=== PATIENT | female | born 1960 | race Caucasian/White ===

== ENCOUNTER 2016-07-27 12:12 | Emergency (ER) | payer BC ==
[2016-07-27 12:17] VITALS: BP 165/89; PULSE 95; TEMP 98.3; BMI 20.3
--- NOTE | 2016-07-27 12:49 | PDOC ---
History of Present Illness - General Chief Complaint: Wound Stated Complaint: RT LEG PAIN/ BITE Time Seen by Provider: 07/27/16 12:23 History Source: Patient Exam Limitations: No Limitations - History of Present Illness Initial Comments: 07/27/16 12:44 55-year-old female presents to the emergency room with complaints of right calf redness with itching for the past 2 days. Patient states ventral sucking that her versus MRSA since she was taking care of her ill father who has history of MRSA for the past 2 weeks prior to his . Patient also denies outdoor activity or recent sick contacts with similar symptoms. Patient denies fever, chills, radiation of pain, or history of immunosuppression. 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) COPD: No CHF: No Dementia: No Diabetes: No GI Disorders: No Disorders: No HTN: No Hypercholesterolemia: No Liver Disease: No Seizures: No Thyroid Disease: No - Surgical History Cardiac Surgery: Yes (HOLE IN HEART REPAIR) - Immunization History Immunization Up to Date: No (no flu vaccine) - Psycho/Social/Smoking Cessation Hx Anxiety: No Suicidal Ideation: No Smoking Status: Yes Smoking History: Current every day smoker Number of Cigarettes Smoked Daily: 7 Information on smoking cessation initiated: Yes 'Breaking Loose' booklet given: 07/27/16 Hx Alcohol Use: Yes (SOCIAL) Drug/Substance Use Hx: No Substance Use Type: None Hx Substance Use Treatment: No Patient Lives Alone: No Review of Systems - Review of Systems Able to Perform ROS?: Yes Constitutional: No: Symptoms Reported Respiratory: No: Symptoms reported Integumentary: Yes: Erythema, Pruritus Endocrine: No: Symptoms Reported Hematologic/Lymphatic: No: Symptoms Reported *Physical Exam - Vital Signs Last Vital Signs Temp Pulse Resp BP Pulse Ox 98.3 F 95 H 20 165/89 99 07/27/16 12:13 07/27/16 12:13 07/27/16 12:13 07/27/16 12:13 07/27/16 12:13 - Physical Exam General Appearance: Yes: Nourished, Appropriately Dressed. No: Apparent Distress Integumentary: positive: Other (noted 2 x 1 cm erythematous nonedematous area to right mid calf with raised pinhead sized vesicles to center). negative: Swelling Neurologic: positive: Motor Strength 5/5 Medical Decision Making - Medical Decision Making 07/27/16 12:47 Patient Protonix erythematous rash to the back of her right leg. Patient may have developed contact dermatitis versus poison shanelle versus MRSA. Patient requesting antibiotics and will be given topical hydrocortisone along with Benadryl. *DC/Admit/Observation/Transfer Diagnosis at time of Disposition: Rash - Discharge Dispostion Disposition: HOME Condition at time of disposition: Good - Patient Instructions Printed Discharge Instructions: DI for Rash Additional Instructions: Please take antibiotics until completed. Next and please use topical hydrocortisone for itching and well loosefitting clothing or leave open to air. If you need to take something stronger you may also take Benadryl. If symptoms worsen return to the ED. Otherwise follow-up with your PCP
== END 2016-07-27 12:54 | disposition home or self-care (01) ==
LOC: JERFT 12:12
DX: R21 Rash and other nonspecific skin eruption (principal)
CPT/HCPCS: 99281-25

== ENCOUNTER 2018-02-17 18:05 | Emergency (ER) | payer BC ==
[2018-02-17 18:14] VITALS: BMI 20.3
--- NOTE | 2018-02-17 18:57 | PDOC ---
History of Present Illness - General Chief Complaint: Back Pain Stated Complaint: RT SIDE AND BACK PAIN Time Seen by Provider: 02/17/18 18:29 History Source: Patient - History of Present Illness Initial Comments: 02/17/18 19:19 57 year old female with one days history of right sided rib pain pain worse with breathing and movement. 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) COPD: No CHF: No Dementia: No Diabetes: No GI Disorders: No Disorders: No HTN: No Hypercholesterolemia: No Liver Disease: No Seizures: No Thyroid Disease: No - Surgical History Cardiac Surgery: Yes (HOLE IN HEART REPAIR) - Immunization History Immunization Up to Date: No (no flu vaccine) - Suicide/Smoking/Psychosocial Hx Smoking Status: Yes Smoking History: Current every day smoker Have you smoked in the past 12 months: Yes Number of Cigarettes Smoked Daily: 10 Information on smoking cessation initiated: No 'Breaking Loose' booklet given: 07/27/16 Hx Alcohol Use: Yes (SOCIAL) Drug/Substance Use Hx: No Substance Use Type: None Hx Substance Use Treatment: No *Physical Exam - Vital Signs Last Vital Signs Temp Pulse Resp BP Pulse Ox 97.9 F 93 H 17 168/72 98 02/17/18 18:10 02/17/18 18:10 02/17/18 18:10 02/17/18 18:10 02/17/18 18:10 - Physical Exam General Appearance: Yes: Appropriately Dressed HEENT: positive: Other (right sided rib tenderness anterior and posterior) Moderate Sedation - Procedure Monitoring Vital Signs: Procedure Monitoring Vital Signs Temperature 97.9 F 02/17/18 18:10 Pulse Rate 93 H 02/17/18 18:10 Respiratory Rate 17 02/17/18 18:10 Blood Pressure 168/72 02/17/18 18:10 O2 Sat by Pulse Oximetry (%) 98 02/17/18 18:10 ED Treatment Course - LABORATORY CBC & Chemistry Diagram: 02/17/18 19:00 02/17/18 19:00 Medical Decision Making - Medical Decision Making 02/17/18 20:[address] Coronado . patient needs blood work and Chest xray pending. patient transferred to the main ER *DC/Admit/Observation/Transfer Diagnosis at time of Disposition: Right-sided chest wall pain - Discharge Dispostion Disposition: HOME - Referrals Referrals: Noah Castañeda MD [Primary Care Provider] - Call tomorrow - Patient Instructions - Post Discharge Activity
--- NOTE | 2018-02-17 19:03 | PDOC ---
*Physical Exam - Vital Signs Last Vital Signs Temp Pulse Resp BP Pulse Ox 97.9 F 93 H 17 168/72 98 02/17/18 18:10 02/17/18 18:10 02/17/18 18:10 02/17/18 18:10 02/17/18 18:10 ED Treatment Course - LABORATORY CBC & Chemistry Diagram: 02/17/18 19:00 02/17/18 19:00 Medical Decision Making - Medical Decision Making 02/17/18 19:02 Pt seen by Midlevel Provider under my direct supervision Briefly, she is a 57 yo F h/o ?VSD repair She presents to the ER with a complaint of right chest pain symptoms have been present for the past day, she awoke with this chest pain Has been progressively been worsening She was unable to sleep last night She is unable to take a deep breath Pain with movement No fevers, chills, cough no trauma to the chest wall No prior episodes like this Pt was initially seen in fast tract She has already taken Tylenol with no relief I agree with plan as outlined by Midlevel Provider Twelve-lead EKG was performed and reviewed by me. There is normal sinus rhythm with a normal rate of 70 bpm. The axis is normal. The intervals are normal. There are no ST or T wave abnormalities. Impression: Normal twelve-lead EKG 02/17/18 19:38 Laboratory Tests 02/17/18 02/17/18 19:00 19:00 WBC 7.5 Hgb 13.6 Hct 39.2 Plt Count 322 INR 0.95 02/17/18 19:52 Laboratory Tests 02/17/18 19:00 Sodium 142 Potassium 4.0 Chloride 109 H BUN 21 H Creatinine 0.7 Random Glucose 89 Alkaline Phosphatase 128 H Troponin I < 0.02 02/17/18 20:01 02/17/18 20:31 Laboratory Tests 02/17/18 19:00 D-Dimer 470 02/17/18 20:36 Pt still has pain After toradol and Robaxin Will do CTA Unclear why this patient has no much pain 02/17/18 22:24 CTA negative Will plan to discharge to home clinical Impression: pleurisy, initial presentation *DC/Admit/Observation/Transfer Diagnosis at time of Disposition: Right-sided chest wall pain, Pleurisy without effusion - Discharge Dispostion Disposition: HOME Condition at time of disposition: Stable Decision to Admit order: No - Prescriptions Prescriptions: Lidocaine 5% Patch [Lidoderm Patch -] 1 patch TP DAILY PRN #30 patch PRN Reason: Pain Methocarbamol [Robaxin -] 500 mg PO TID PRN #30 tablet PRN Reason: Lower Back Pain Naproxen [Naprosyn -] 500 mg PO BID PRN #14 tablet PRN Reason: Pain traMADol HCL [Ultram] 50 mg PO Q8H PRN #15 tablet MDD 3 PRN Reason: Severe Pain - Referrals Referrals: Noah Castañeda MD [Primary Care Provider] - Call tomorrow - Patient Instructions Printed Discharge Instructions: DI for Pleurisy Additional Instructions: Thank you for coming in to the ER today Please review your CT and lab findings There is no evidence of a clot in your lungs accounting for your pain Please try pain medications which were prescribed for your pain Please follow up with your primary care physician within 2 days You can feel free to return to the ER if you have new symptoms, any other concerns or complaints - Post Discharge Activity Forms/Work/School Notes: Back to Work
[2018-02-17 19:17] LABS: BASO % 0.9 % (0-2.0); EOS % 1.8 % (0-4.5); HEMATOCRIT 39.2 % (32.4-45.2); HEMOGLOBIN 13.6 GM/dL (10.7-15.3); LYMPH % 40.4 % (8-40); MCH 31.3 pg (25.7-33.7); MCHC 34.6 g/dl (32.0-36.0); MEAN CELL VOLUME 90.4 fl (80-96); MEAN PLT VOLUME 8.4 fl (7.5-11.1); MONO % 7.1 % (3.8-10.2); NEUT % 49.8 % (42.8-82.8); PLATELET COUNT 322 K/MM3 (134-434); RBC 4.34 M/mm3 (3.60-5.2); RDW 13.2 % (11.6-15.6); WHITE BLOOD COUNT 7.5 K/mm3 (4.0-10.0)
[2018-02-17 19:30] LABS: INR 0.95 (0.83-1.09); PROTHROMBIN TIME (PATIENT) 11.2 SEC (9.7-13.0)
[2018-02-17 19:41] LABS: ALBUMIN 3.9 g/dl (3.4-5.0); ALK PHOS 128 U/L (45-117); ANION GAP 7 MMOL/L (8-16); BILIRUBIN,TOTAL 0.3 mg/dL (0.2-1); BLOOD UREA NITROGEN 21 mg/dL (7-18); CHLORIDE 109 mmol/L (98-107); CO2 27 mmol/L (21-32); CREATININE 0.7 mg/dL (0.55-1.3); GLUCOSE,RANDOM 89 mg/dL (74-106); MAGNESIUM 2.4 mg/dL (1.8-2.4); SGOT/AST 9 U/L (15-37); SGPT/ALT 17 U/L (13-61); SODIUM 142 mmol/L (136-145); TOT PROT 7.5 g/dl (6.4-8.2)
[2018-02-17] MEDS ORDERED: METHOCARBAMOL 500 MG TABLET PO ONE (19:59)
[2018-02-17] MEDS ORDERED: KETOROLAC TROMETHAMINE 30 MG/1 ML VIAL IVPUSH ONE (19:59)
[2018-02-17] MEDS ORDERED: METHOCARBAMOL 500 MG TABLET ONE (20:08)
[2018-02-17] MEDS ORDERED: KETOROLAC TROMETHAMINE 30 MG/1 ML VIAL ONE (20:09)
[2018-02-17] MEDS ORDERED: ACETAMINOPHEN 1000 MG/100 ML VIAL (NON FORMULARY) IVPB ONE (22:28)
[2018-02-17] MEDS ORDERED: ACETAMINOPHEN INJECTION 100 ML IVPB ONE (22:35)
[2018-02-17 23:01] VITALS: BP 143/73; PULSE 65; TEMP 98.2
--- NOTE | 2018-02-18 12:13 | EKG ---
Test Reason : Blood Pressure : / mmHG Vent. Rate : 070 BPM Atrial Rate : 070 BPM P-R Int : 120 ms QRS Dur : 106 ms QT Int : 442 ms P-R-T Axes : 068 086 075 degrees QTc Int : 477 ms NORMAL SINUS RHYTHM INCOMPLETE LEFT BUNDLE BRANCH BLOCK MINIMAL VOLTAGE CRITERIA FOR LVH, MAY BE NORMAL VARIANT BORDERLINE ECG WHEN COMPARED WITH ECG OF 01-MAR-2014 20:29, NO SIGNIFICANT CHANGE WAS FOUND Confirmed by CORAL MCGUIRE MD ([id number]) on 02/18/2018 12:12:35 PM Referred By: SALLY Confirmed By:CORAL MCGUIRE MD
== END 2018-02-17 23:01 | disposition home or self-care (01) ==
LOC: JER 18:05 → JERFT 18:05 → JER 23:01
PROC: 3E033NZ Introduction of Analgesics, Hypnotics, Sedatives into Peripheral Vein, Percutaneous Approach (ICD-10-PCS; principal; 2018-02-17)
PROC: 3E0333Z Introduction of Anti-inflammatory into Peripheral Vein, Percutaneous Approach (ICD-10-PCS; 2018-02-17)
DX: R07.81 Pleurodynia (principal); F17.210 Nicotine dependence, cigarettes, uncomplicated; Z86.73 Personal history of transient ischemic attack (TIA), and cerebral infarction without residual deficits
CPT/HCPCS: 36415; 71046-TC-FY; 71101-TC-RT-FY; 71275-TC; 80053; 83735; 84484; 85025; 85379; 85610; 93005; 93010; 99284-25; J0131

== ENCOUNTER 2019-04-27 19:06 | Emergency (ER) | payer BC ==
[2019-04-27 19:13] VITALS: TEMP 97.5; BMI 23.5
[2019-04-27] MEDS ORDERED: ONDANSETRON *ODT* 4 MG TABLET SL ONE (19:58)
[2019-04-27] MEDS ORDERED: FAMOTIDINE 20 MG/50 ML IVPB 20 MG/50 ML MG IVPB ONE ×2 (19:58→20:09)
[2019-04-27] MEDS ORDERED: MAG HYDROX/AL HYDROX/SIMETH -MYLANTA- ORAL SUSPENSION PO ONE (19:58)
--- NOTE | 2019-04-27 19:59 | PDOC ---
History of Present Illness <Lizz Pham - Last Filed: 04/27/19 22:24> - General History Source: Patient - History of Present Illness Initial Comments: 04/27/19 21:41 Ms. Mane is a 58 y/o woman with hx heart surgery (?VSD repair) p/w one day of central chest tightness. She reports noticing the pain last night shortly after eating dinner (pizza). She reports eating tums at that time without relief. She reports that the pain progressed over night, until reaching 8/10 pain today, and has been constant. No worsening of pain with exertion, pain with radiation to R arm. No sob, weakness, confusion, vision changes, nausea, vomiting, abdominal pain. 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) COPD: No CHF: No Dementia: No Diabetes: No GI Disorders: No Disorders: No HTN: No Hypercholesterolemia: No Liver Disease: No Seizures: No Thyroid Disease: No - Surgical History Cardiac Surgery: Yes (HOLE IN HEART REPAIR) - Immunization History Immunization Up to Date: No (no flu vaccine) - Psycho Social/Smoking Cessation Hx Smoking Status: Yes Smoking History: Former smoker Have you smoked in the past 12 months: No Number of Cigarettes Smoked Daily: 10 Information on smoking cessation initiated: No 'Breaking Loose' booklet given: 07/27/16 Hx Alcohol Use: Yes (SOCIAL) Drug/Substance Use Hx: No Substance Use Type: None Hx Substance Use Treatment: No <Justin Lezama - Last Filed: 04/28/19 04:36> - Past Medical History Allergies/Adverse Reactions: Allergies Allergy/AdvReac Type Severity Reaction Status Date / Time No Known Allergies Allergy Verified 04/27/19 19:12 Review of Systems - Review of Systems Able to Perform ROS?: Yes Comments:: 04/28/19 04:32 ROS: GENERAL/CONSTITUTIONAL: No fever or chills. No weakness. HEAD, EYES, EARS, NOSE AND THROAT: No change in vision. No ear pain or discharge. No sore throat. CARDIOVASCULAR: Chest pain. No shortness of breath RESPIRATORY: No cough, wheezing, or hemoptysis. GASTROINTESTINAL: No nausea, vomiting, diarrhea or constipation. GENITOURINARY: No dysuria, frequency, or change in urination. MUSCULOSKELETAL: No joint or muscle swelling or pain. No neck or back pain. SKIN: No rash NEUROLOGIC: No headache, vertigo, loss of consciousness, or change in strength/ sensation. ENDOCRINE: No increased thirst. No abnormal weight change HEMATOLOGIC/LYMPHATIC: No anemia, easy bleeding, or history of blood clots. ALLERGIC/IMMUNOLOGIC: No hives or skin allergy. <Justin Lezama - Last Filed: 04/28/19 04:36> *Physical Exam - Vital Signs Last Vital Signs Temp Pulse Resp BP Pulse Ox 97.5 F L 88 18 159/63 97 04/27/19 19:10 04/27/19 19:10 04/27/19 19:10 04/27/19 19:10 04/27/19 20:32 <Lizz Pham - Last Filed: 04/27/19 22:24> - Vital Signs Last Vital Signs Temp Pulse Resp BP Pulse Ox 97.5 F L 88 18 159/63 99 04/27/19 19:10 04/27/19 19:10 04/27/19 19:10 04/27/19 19:10 04/27/19 19:10 - Physical Exam 04/28/19 04:33 PE: GENERAL: Awake, alert, and fully oriented, in no acute distress HEAD: No signs of trauma, normocephalic, atraumatic EYES: PERRLA, EOMI, sclera anicteric, conjunctiva clear ENT: Auricles normal inspection, hearing grossly normal, nares patent, oropharynx clear without exudates. Moist mucosa NECK: Normal ROM, supple, no lymphadenopathy, JVD, or masses LUNGS: No distress, speaks full sentences, clear to auscultation bilaterally HEART: Regular rate and rhythm, normal S1 and S2, no murmurs, rubs or gallops, peripheral pulses normal and equal bilaterally. ABDOMEN: Soft, nontender, normoactive bowel sounds. No guarding, no rebound. No masses EXTREMITIES : Normal inspection, Normal range of motion, no edema. No clubbing or cyanosis NEUROLOGICAL: Cranial nerves II through XII grossly intact. Normal speech, normal gait, no focal sensorimotor deficits SKIN: Warm, Dry, normal turgor, no rashes or lesions noted <Justin Lezama - Last Filed: 04/28/19 04:36> Heart Score/ECG Review - History History: Slightly suspicious - Electrocardiogram EKG: Normal - Age Age: 45-65 - Risk Factors Based on the list above the patient has:: 1-2 risk factors - Troponin Troponin: </= normal limit - Score Heart Score - Total: 2 <Justin Lezama - Last Filed: 04/28/19 04:36> ED Treatment Course - LABORATORY CBC & Chemistry Diagram: 04/27/19 20:26 04/27/19 20:26 - ADDITIONAL ORDERS Additional order review: Laboratory Results 04/27/19 04/27/19 04/27/19 20:26 20:26 20:26 PT with INR 12.00 INR 1.02 PTT (Actin FS) 33.2 Sodium 143 Potassium 3.5 Chloride 108 H Carbon Dioxide 29 Anion Gap 7 L BUN 19.1 H Creatinine 0.7 Est GFR (CKD-EPI)AfAm 112.26 Est GFR (CKD-EPI)NonAf 96.86 Random Glucose 86 Calcium 9.2 Total Bilirubin 0.3 AST 17 ALT 28 Alkaline Phosphatase 140 H Creatine Kinase 78 Troponin I < 0.02 Total Protein 7.1 Albumin 3.5 04/27/19 20:26 RBC 4.31 MCV 88.8 MCHC 33.8 RDW 13.8 MPV 8.3 Neutrophils % 63.3 D Lymphocytes % 28.1 D Monocytes % 7.1 Eosinophils % 0.7 Basophils % 0.8 - Medications Given in the ED: ED Medications Discontinued Medications Generic Name Dose Route Start Last Admin Trade Name Freq PRN Reason Stop Dose Admin Al Hydroxide/Mg Hydroxide 30 ml 04/27/19 19:58 04/27/19 20:30 Mylanta Suspension - PO 04/27/19 19:59 1 cup ONCE ONE Administration Famotidine/Sodium Chloride 20 mg in 50 mls @ 100 mls/hr 04/27/19 19:58 20:30 Pepcid 20 Mg Premixed Ivpb - IVPB 04/27/19 20:27 100 mls/hr ONCE ONE Administration Ketorolac Tromethamine 30 mg 04/27/19 21:08 04/27/19 21:34 Toradol Injection - IVPUSH 04/27/19 21:09 30 mg ONCE ONE Administration Ondansetron HCl 4 mg 04/27/19 19:58 04/27/19 20:30 Zofran Odt - SL 04/27/19 19:59 4 mg ONCE ONE Administration <Claire Phamreen - Last Filed: 04/27/19 22:24> - LABORATORY CBC & Chemistry Diagram: 04/27/19 20:26 04/27/19 20:26 <LiseJustin - Last Filed: 04/28/19 04:36> Medical Decision Making - Medical Decision Making 04/27/19 21:44 58F w/hx remote cardiac surgery p/w acute onset chest tightness s/p eating. Ddx ACS, GERD, MSK pain. PE unlikely w/o sob, tachypnea, tachycardia. Plan: CBC CMP Cardiac profile x1 (onset of pain last night) EKG CXR Maalox Reglan Acetaminophen for pain Dispo: Pending labs, likely discharge --- CBC - wnl CMP - wnl Troponin - negative CXR - no acute process EKG - NSR, no ischemic changes --- On reassessment, pain significantly improved. Plan for discharge with close PCP follow up <Justin Lezama - Last Filed: 04/28/19 04:36> Discharge <VeroLizz - Last Filed: 04/27/19 22:24> - Discharge Information Problems reviewed: Yes - Admission No <Justin Lezama - Last Filed: 04/28/19 04:36> - Discharge Information Clinical Impression/Diagnosis: Chest discomfort Condition: Stable Disposition: HOME - Follow up/Referral Referrals: Noah Castañeda MD [Primary Care Provider] - - Patient Discharge Instructions Patient Printed Discharge Instructions: Eating a Diet Rich in Fruits and Vegetables, DI for Atypical Chest Pain, DI for Chest Pain Additional Instructions: You were seen in the ER for chest pain. Your blood work was normal, and your pain improved. Please be sure to follow up with your primary care provider as soon as possible, in the next 7 days. Please return to the ER if you develop weakness, worsening chest pain, trouble breathing. - Post Discharge Activity Work/Back to School Note: Back to Work
--- NOTE | 2019-04-27 20:02 | PDOC ---
*Physical Exam - Vital Signs Last Vital Signs Temp Pulse Resp BP Pulse Ox 97.5 F L 88 18 159/63 99 04/27/19 19:10 04/27/19 19:10 04/27/19 19:10 04/27/19 19:10 04/27/19 19:10 ED Treatment Course - LABORATORY CBC & Chemistry Diagram: 04/27/19 20:26 04/27/19 20:26 Medical Decision Making - Medical Decision Making 04/27/19 20:01 58 y/o female with a PMHx of anatomic cardiac abnormality (hole in heart s/p repair) presents with acute onset of chest tightness starting yesterday around 2 p.m. Patient states she ate a pizza for lunch around 12:30 or 1 p.m. yesterday and suddenly felt "not right" had episodes of diarrhea and then approximately one hour later had acute onset of chest tightness. Tightness is constant and radiates down her right arm. No associated shortness of breath, palpitations, lightheadedness, nausea. No significant family cardiac history, no previous stress testing. States she took 4 baby aspirin earlier today without any relief of the pain. Will r/o ACS, also consider GERD, esophageal spasm, costochondritis, MSK. Discharge - Discharge Information Problems reviewed: Yes Clinical Impression/Diagnosis: Chest discomfort Condition: Stable Disposition: HOME - Follow up/Referral Referrals: Noah Castañeda MD [Primary Care Provider] - - Patient Discharge Instructions Patient Printed Discharge Instructions: Eating a Diet Rich in Fruits and Vegetables, DI for Atypical Chest Pain, DI for Chest Pain Additional Instructions: You were seen in the ER for chest pain. Your blood work was normal, and your pain improved. Please be sure to follow up with your primary care provider as soon as possible, in the next 7 days. Please return to the ER if you develop weakness, worsening chest pain, trouble breathing. - Post Discharge Activity Work/Back to School Note: Back to Work
[2019-04-27] MEDS ORDERED: ONDANSETRON *ODT* 4 MG TABLET ONE (20:09)
[2019-04-27] MEDS ORDERED: MAG HYDROX/AL HYDROX/SIMETH 30 ML UNIT-DOSE CUP ONE (20:09)
[2019-04-27 20:52] LABS: BASO % 0.8 % (0-2.0); EOS % 0.7 % (0-4.5); HEMATOCRIT 38.2 % (32.4-45.2); HEMOGLOBIN 12.9 GM/dL (10.7-15.3); INR 1.02 (0.83-1.09); LYMPH % 28.1 % (8-40); MCHC 33.8 g/dl (32.0-36.0); MEAN CELL VOLUME 88.8 fl (80-96); MEAN PLT VOLUME 8.3 fl (7.5-11.1); MONO % 7.1 % (3.8-10.2); NEUT % 63.3 % (42.8-82.8); PLATELET COUNT 363 K/MM3 (134-434); RBC 4.31 M/mm3 (3.60-5.2); RDW 13.8 % (11.6-15.6); WHITE BLOOD COUNT 9.6 K/mm3 (4.0-10.0)
[2019-04-27 20:54] LABS: ACTIVATED PTT 33.2 SECONDS (25.2-36.5)
[2019-04-27] MEDS ORDERED: KETOROLAC TROMETHAMINE 30 MG/1 ML VIAL IVPUSH ONE (21:08)
--- NOTE | 2019-04-27 21:21 | PDOC ---
Attending Attestation - Resident Resident Name: Justin Lezama - ED Attending Attestation I have performed the following: I have examined & evaluated the patient, The case was reviewed & discussed with the resident, I agree w/resident's findings & plan - HPI HPI: 04/27/19 21:17 Pt comes with CP; MSCP; epigastric pain. Started yesterday after she ate [employer] '[employer] pizza - a topping she never had before. 04/27/19 23:22 Pt quit smoking last year Pt has a hx of heart wall repair after she passed out and was found to have a "hole a her heart" 10 years ago - Physicial Exam PE: 04/27/19 23:21 Normal vitals; normal equal BP in arms bilaterally HEENT normal heart normal lungs normal abd soft NT ND +BS No C/C/E - Medical Decision Making 04/27/19 21:17 CBC normal card enzymes normal 04/27/19 23:22 Chem normal EKG normal CXR normal Pt feeling better ready to go home. Heart Score/ECG Review - History History: Slightly suspicious - ECG Intrepretation Rhythm: Regular Rhythm - QRS Poor R Wave Progression: No Q Wave Present: No - ST and T Early Repolarization: No Non Specific ST-T Wave changes: No Flattened T Waves: No Prolonged Q-T Interval: No - ECG Impressions Normal ECG: Yes Non-specific ST Elevation: No Ischemic Changes: No Bradycardia: No Torsades umu Pointes: No WPW: No
[2019-04-27 21:23] LABS: ALBUMIN 3.5 g/dl (3.4-5.0); BILIRUBIN,TOTAL 0.3 mg/dL (0.2-1); BLOOD UREA NITROGEN 19.1 mg/dL (7-18); CALCIUM 9.2 mg/dL (8.5-10.1); CREATININE 0.7 mg/dL (0.55-1.3); POTASSIUM 3.5 mmol/L (3.5-5.1); TOT PROT 7.1 g/dl (6.4-8.2)
[2019-04-27] MEDS ORDERED: KETOROLAC TROMETHAMINE 30 MG/1 ML VIAL ONE (21:26)
[2019-04-27 22:26] VITALS: BP 128/87; PULSE 73
[2019-04-27] MEDS ORDERED: METOCLOPRAMIDE HCL INJECTION 10 MG/2 ML VIAL IVPUSH ONE (22:33)
[2019-04-27] MEDS ORDERED: ACETAMINOPHEN 1000 MG/100 ML VIAL (NON FORMULARY) IVPB ONE (22:33)
[2019-04-27] MEDS ORDERED: METOCLOPRAMIDE HCL INJECTION 10 MG/2 ML VIAL ONE (22:35)
[2019-04-27] MEDS ORDERED: ACETAMINOPHEN INJECTION 100 ML IVPB ONE (22:36)
--- NOTE | 2019-04-29 09:49 | EKG ---
Test Reason : Blood Pressure : / mmHG Vent. Rate : 077 BPM Atrial Rate : 077 BPM P-R Int : 144 ms QRS Dur : 106 ms QT Int : 422 ms P-R-T Axes : 012 082 064 degrees QTc Int : 477 ms NORMAL SINUS RHYTHM INCOMPLETE LEFT BUNDLE BRANCH BLOCK NONSPECIFIC ST ABNORMALITY ABNORMAL ECG WHEN COMPARED WITH ECG OF 17-FEB-2018 19:29, NO SIGNIFICANT CHANGE WAS FOUND Confirmed by Jeremiah Wagner ([id number]) on 04/29/2019 9:49:06 AM Referred By: Confirmed By:Jeremiah Wagner
== END 2019-04-27 23:25 | disposition home or self-care (01) ==
LOC: JER 19:06
PROC: 3E033GC Introduction of Other Therapeutic Substance into Peripheral Vein, Percutaneous Approach (ICD-10-PCS; principal; 2019-04-27)
PROC: 3E033GC Introduction of Other Therapeutic Substance into Peripheral Vein, Percutaneous Approach (ICD-10-PCS; 2019-04-27)
PROC: 3E033NZ Introduction of Analgesics, Hypnotics, Sedatives into Peripheral Vein, Percutaneous Approach (ICD-10-PCS; 2019-04-27)
PROC: 3E0333Z Introduction of Anti-inflammatory into Peripheral Vein, Percutaneous Approach (ICD-10-PCS; 2019-04-27)
DX: R07.89 Other chest pain (principal); Z86.73 Personal history of transient ischemic attack (TIA), and cerebral infarction without residual deficits; Z86.79 Personal history of other diseases of the circulatory system
CPT/HCPCS: 36415; 71045-TC-FY; 80053; 82550; 84484; 85025; 85610; 85730; 93005; 93010; 99285-25; J0131; Q0162

== ENCOUNTER 2021-05-04 04:18 | Day surgery (SDC) | payer BC ==
[2021-04-29 12:01] VITALS: BMI 24.7
[~2021-05-04 04:18] MED LIST: LIDOCAINE HCL 1%, 10 MG/ML (20ML VIAL) NR ONE
[2021-05-04] MEDS ORDERED: LIDOCAINE HCL 1%, 10 MG/ML (20ML VIAL) ONE (10:13)
[2021-05-04] MEDS ORDERED: MIDAZOLAM HCL 2 MG/2 ML SINGLE DOSE VIAL ONE (11:06)
[2021-05-04] MEDS ORDERED: PROPOFOL 20 ML ONE ×2 (11:06)
[2021-05-04] MEDS ORDERED: ceFAZolin SODIUM 1 GM VIAL IVPB ONE (11:24)
[2021-05-04] MEDS ORDERED: DEXAMETHASONE SOD PHOSPHATE 4 MG/1 ML VIAL ONE (11:28)
[2021-05-04] MEDS ORDERED: ONDANSETRON 4 MG/2 ML VIAL ONE (11:28)
[2021-05-04] MEDS ORDERED: ceFAZolin SODIUM 1 GM VIAL ONE (11:29)
[2021-05-04] MEDS ORDERED: KETOROLAC TROMETHAMINE 30 MG/1 ML VIAL ONE (11:30)
[2021-05-04] MEDS ORDERED: LIDOCAINE HCL 1%, 10 MG/ML (20ML VIAL) NR ONE ×2 (11:36)
[2021-05-04 13:14] VITALS: BP 131/60; PULSE 72; TEMP 97.4
== END 2021-05-04 13:25 | disposition home or self-care (01) ==
LOC: JASU-SURG 04:18
PROVIDERS: ATTEND Surgery
PROC: 0HBU0ZZ Excision of Left Breast, Open Approach (ICD-10-PCS; principal; 2021-05-04 11:00)
DX: N60.22 Fibroadenosis of left breast (principal); N60.92 Unspecified benign mammary dysplasia of left breast
CPT/HCPCS: 19281; 76098-TC-FY; 88307-TC

== ENCOUNTER 2022-02-15 09:21 | Inpatient (IN) | payer BC ==
[2022-02-15 09:26] VITALS: BMI 25.8
[2022-02-15] MEDS ORDERED: METOCLOPRAMIDE HCL INJECTION 10 MG/2 ML VIAL IVPUSH ONE (10:03)
[2022-02-15] MEDS ORDERED: ACETAMINOPHEN 1000 MG/100 ML BAG IVPB ONE (10:03)
[2022-02-15] MEDS ORDERED: ASPIRIN 81 MG CHEWABLE TABLETS PO ONE (10:03)
[2022-02-15] MEDS ORDERED: ASPIRIN 81 MG CHEWABLE TABLETS ONE (10:20)
[2022-02-15 10:47] LABS: BASO % 0.9 % (0-2.0); HEMATOCRIT 43.7 % (32.4-45.2); HEMOGLOBIN 14.5 GM/dL (10.7-15.3); LYMPH % 30.6 % (8-40); MCH 29.6 pg (25.7-33.7); MCHC 33.2 g/dl (32.0-36.0); MEAN CELL VOLUME 89.2 fl (80-96); MEAN PLT VOLUME 8.3 fl (7.5-11.1); MONO % 6.2 % (3.8-10.2); NEUT % 61.3 % (42.8-82.8); PLATELET COUNT 425 10^3/uL (134-434); RDW 14.6 % (11.6-15.6); WHITE BLOOD COUNT 7.6 K/mm3 (4.0-10.0)
[2022-02-15] MEDS ORDERED: ACETAMINOPHEN INJECTION 100 ML IVPB ONE (10:51)
[2022-02-15] MEDS ORDERED: METOCLOPRAMIDE HCL INJECTION 10 MG/2 ML VIAL ONE (10:51)
[2022-02-15 11:05] LABS: CHLORIDE 106 mmol/L (98-107); SODIUM 140 mmol/L (136-145)
[2022-02-15 11:08] LABS: ALBUMIN 3.6 g/dl (3.4-5.0); BLOOD UREA NITROGEN 15.8 mg/dL (7-18); CALCIUM 9.4 mg/dL (8.5-10.1); CO2 25 mmol/L (21-32); GLUCOSE,RANDOM 100 mg/dL (74-106)
[2022-02-15 11:11] LABS: CREATININE 0.8 mg/dL (0.55-1.3); SGOT/AST 66 U/L (15-37)
[2022-02-15 11:13] LABS: BILIRUBIN,TOTAL 0.6 mg/dL (0.2-1); TOT PROT 8.1 g/dl (6.4-8.2)
[2022-02-15 11:14] LABS: ALK PHOS 133 U/L (45-117)
[2022-02-15 11:15] LABS: ANION GAP 9 MMOL/L (8-16); SGPT/ALT 39 U/L (13-61)
[2022-02-15] MEDS ORDERED: metoPROLOL SUCCINATE 25 MG TAB.SR.24H (FP) PO ONE ×2 (11:57→12:25)
[2022-02-15 13:21] LABS: BLOOD UREA NITROGEN 14.3 mg/dL (7-18); CALCIUM 9.4 mg/dL (8.5-10.1)
[2022-02-15 13:24] LABS: CREATININE 0.6 mg/dL (0.55-1.3)
[2022-02-15 13:52] LABS: N-TERMINAL BNP 107.7 pg/ml (5-125)
[2022-02-16] MEDS ORDERED: ACETAMINOPHEN 1000 MG/100 ML BAG IVPB ONE (02:36)
[2022-02-16 07:46] LABS: BASO % 0.8 % (0-2.0); EOS % 2.7 % (0-4.5); HEMATOCRIT 41.8 % (32.4-45.2); LYMPH % 39.4 % (8-40); MCH 29.9 pg (25.7-33.7); MCHC 33.5 g/dl (32.0-36.0); MEAN CELL VOLUME 89.2 fl (80-96); MEAN PLT VOLUME 8.1 fl (7.5-11.1); MONO % 6.5 % (3.8-10.2); NEUT % 50.6 % (42.8-82.8); PLATELET COUNT 357 10^3/uL (134-434); RBC 4.68 M/mm3 (3.60-5.2); RDW 14.2 % (11.6-15.6); WHITE BLOOD COUNT 7.5 K/mm3 (4.0-10.0)
[2022-02-16 08:05] LABS: ALBUMIN 3.4 g/dl (3.4-5.0); BLOOD UREA NITROGEN 17.6 mg/dL (7-18); MAGNESIUM 2.4 mg/dL (1.8-2.4)
[2022-02-16 08:08] LABS: CREATININE 0.7 mg/dL (0.55-1.3); PHOSPHOROUS 3.2 mg/dL (2.5-4.9)
[2022-02-16 08:09] LABS: BILIRUBIN,TOTAL 0.3 mg/dL (0.2-1); TOT PROT 7.1 g/dl (6.4-8.2)
[2022-02-16 09:50] VITALS: BP 132/65; PULSE 68; RESP 18; TEMP 98.8
[2022-02-16] MEDS ORDERED: ENOXAPARIN NA (PORCINE) 40 MG/0.4 ML DISP.SYRIN SQ SCH (10:00)
[2022-02-16] MEDS ORDERED: metoPROLOL SUCCINATE 25 MG TAB.SR.24H (FP) PO SCH (10:00)
== END 2022-02-16 13:48 | disposition home or self-care (01) | DRG 313 ==
LOC: JER 09:21 → JERBED 12:57 → J4S 02-16 01:24
PROVIDERS: ADMIT Internal Medicine; ATTEND Nurse Practitioner Acute Care
DX: R07.89 Other chest pain (principal); I10 Essential (primary) hypertension; G43.909 Migraine, unspecified, not intractable, without status migrainosus; F17.210 Nicotine dependence, cigarettes, uncomplicated; E78.5 Hyperlipidemia, unspecified; Z86.73 Personal history of transient ischemic attack (TIA), and cerebral infarction without residual deficits
CPT/HCPCS: 36415; 70450-TC; 71045-TC-FY; 80048; 80053; 80061; 83735; 83880; 84100; 84443; 84484; 85025; 85651; 93005; 93010; 93306-TC; 93880-TC; 99285-25; C9803-CS; G0378; U0003; U0005

== ENCOUNTER 2022-08-17 16:40 | Emergency (ER) | payer BC ==
[2022-08-17 16:55] VITALS: TEMP 98; BMI 24.7
[2022-08-17] MEDS ORDERED: ACETAMINOPHEN 1000 MG/100 ML BAG IVPB ONE (17:32)
[2022-08-17] MEDS ORDERED: ACETAMINOPHEN INJECTION 100 ML IVPB ONE (18:49)
[2022-08-17 19:16] LABS: BASO % 0.8 % (0-2.0); EOS % 1.3 % (0-4.5); HEMATOCRIT 42.9 % (32.4-45.2); HEMOGLOBIN 14.5 GM/dL (10.7-15.3); LYMPH % 22.5 % (8-40); MCH 29.8 pg (25.7-33.7); MCHC 33.7 g/dl (32.0-36.0); MEAN CELL VOLUME 88.5 fl (80-96); MEAN PLT VOLUME 8.3 fl (7.5-11.1); MONO % 5.9 % (3.8-10.2); NEUT % 69.5 % (42.8-82.8); PLATELET COUNT 344 10^3/uL (134-434); RBC 4.84 M/mm3 (3.60-5.2); RDW 14.4 % (11.6-15.6); WHITE BLOOD COUNT 14.8 K/mm3 (4.0-10.0)
[2022-08-17 19:23] LABS: INR 0.97 (0.83-1.09); PROTHROMBIN TIME (PATIENT) 11.3 SEC (9.7-13.0)
[2022-08-17 19:26] LABS: ACTIVATED PTT 28.8 SECONDS (25.2-36.5)
[2022-08-17 19:34] LABS: POTASSIUM 4.1 mmol/L (3.5-5.1)
[2022-08-17 19:36] LABS: ALBUMIN 3.7 g/dl (3.4-5.0); BLOOD UREA NITROGEN 17.6 mg/dL (7-18); CALCIUM 9.3 mg/dL (8.5-10.1); MAGNESIUM 2.4 mg/dL (1.8-2.4)
[2022-08-17 19:39] LABS: CREATININE 0.7 mg/dL (0.55-1.3)
[2022-08-17 19:41] LABS: BILIRUBIN,TOTAL 0.5 mg/dL (0.2-1); TOT PROT 7.2 g/dl (6.4-8.2)
[2022-08-17 19:44] LABS: N-TERMINAL BNP 143.1 pg/ml (5-125)
[2022-08-17 20:50] VITALS: BP 155/101; PULSE 84; RESP 18
== END 2022-08-17 21:51 | disposition left against medical advice (07) ==
LOC: JER 16:40
PROC: 3E033NZ Introduction of Analgesics, Hypnotics, Sedatives into Peripheral Vein, Percutaneous Approach (ICD-10-PCS; principal; 2022-08-17)
DX: R07.89 Other chest pain (principal); M54.6 Pain in thoracic spine; R51.9 Headache, unspecified; Z20.822 Contact with and (suspected) exposure to COVID-19
CPT/HCPCS: 0241U-QW; 36415; 71275-TC; 74174-TC; 80053; 83735; 83880; 84484; 85025; 85610; 85730; 86850; 86900; 86901; 93005; 93010; 99285-25; Q9967

== ENCOUNTER 2022-08-18 21:20 | Observation (INO) | payer BC ==
[2022-08-18] MEDS ORDERED: ACETAMINOPHEN 1000 MG/100 ML BAG IVPB ONE (21:58)
[2022-08-18] MEDS ORDERED: LIDOCAINE 5% TOPICAL PATCH TP ONE (21:59)
[2022-08-18] MEDS ORDERED: KETOROLAC TROMETHAMINE 15 MG/ML VIAL IVPUSH ONE (21:59)
[2022-08-18] MEDS ORDERED: METHOCARBAMOL 500 MG TABLET PO ONE (21:59)
[2022-08-18] MEDS ORDERED: LIDOCAINE PATCH REMOVAL MC SCH (22:00)
[2022-08-18 22:18] LABS: BASO % 0.8 % (0-2.0); EOS % 2.1 % (0-4.5); HEMATOCRIT 40.6 % (32.4-45.2); HEMOGLOBIN 13.4 GM/dL (10.7-15.3); LYMPH % 30.9 % (8-40); MCH 29.8 pg (25.7-33.7); MEAN CELL VOLUME 90.2 fl (80-96); MEAN PLT VOLUME 8.4 fl (7.5-11.1); MONO % 5.7 % (3.8-10.2); NEUT % 60.5 % (42.8-82.8); PLATELET COUNT 322 10^3/uL (134-434); RDW 14.2 % (11.6-15.6); WHITE BLOOD COUNT 10.4 K/mm3 (4.0-10.0)
[2022-08-18] MEDS ORDERED: METHOCARBAMOL 500 MG TABLET ONE (22:24)
[2022-08-18] MEDS ORDERED: LIDOCAINE 5% TOPICAL PATCH ONE (22:25)
[2022-08-18] MEDS ORDERED: KETOROLAC TROMETHAMINE 15 MG/ML VIAL ONE (22:25)
[2022-08-18] MEDS ORDERED: ACETAMINOPHEN INJECTION 100 ML IVPB ONE (22:25)
[2022-08-18 22:47] LABS: CALCIUM 9.1 mg/dL (8.5-10.1)
[2022-08-18 22:48] LABS: ALBUMIN 3.3 g/dl (3.4-5.0); BLOOD UREA NITROGEN 18.6 mg/dL (7-18)
[2022-08-18 22:51] LABS: CREATININE 0.9 mg/dL (0.55-1.3)
[2022-08-18 22:53] LABS: BILIRUBIN,TOTAL 0.3 mg/dL (0.2-1); TOT PROT 6.8 g/dl (6.4-8.2)
[2022-08-19] MEDS ORDERED: DOCUSATE SODIUM 100 MG CAPSULE (FP) PO PRN (03:11)
[2022-08-19] MEDS ORDERED: DEXTROSE 5%-NORMAL SALINE 1,000 ML IV SCH (03:15)
[2022-08-19] MEDS ORDERED: ACETAMINOPHEN 1000 MG/100 ML BAG IVPB PRN (03:16)
[2022-08-19] MEDS ORDERED: KETOROLAC TROMETHAMINE 15 MG/ML VIAL IVPUSH PRN (03:16)
[2022-08-19 03:21] VITALS: BMI 27.0
[2022-08-19] MEDS ORDERED: FAMOTIDINE 20 MG/50 ML IVPB 20 MG/50 ML MG IVPB ONE (05:13)
[2022-08-19] MEDS ORDERED: MAG HYDROX/AL HYDROX/SIMETH 30 ML UNIT-DOSE CUP PO PRN (05:18)
[2022-08-19] MEDS ORDERED: ALBUTEROL SO4 HFA INHALER IH PRN (06:03)
[2022-08-19 07:40] LABS: INR 0.97 (0.83-1.09); PROTHROMBIN TIME (PATIENT) 11.2 SEC (9.7-13.0)
[2022-08-19 07:43] LABS: ACTIVATED PTT 28.4 SECONDS (25.2-36.5)
[2022-08-19 07:51] LABS: POTASSIUM 4.4 mmol/L (3.5-5.1)
[2022-08-19 07:59] LABS: BASO % 0.9 % (0-2.0); EOS % 2.7 % (0-4.5); HEMATOCRIT 38.4 % (32.4-45.2); HEMOGLOBIN 12.5 GM/dL (10.7-15.3); LYMPH % 35.3 % (8-40); MCH 29.6 pg (25.7-33.7); MCHC 32.6 g/dl (32.0-36.0); MEAN CELL VOLUME 90.9 fl (80-96); MEAN PLT VOLUME 8.6 fl (7.5-11.1); NEUT % 55.1 % (42.8-82.8); PLATELET COUNT 278 10^3/uL (134-434); RBC 4.22 M/mm3 (3.60-5.2); RDW 14.2 % (11.6-15.6); WHITE BLOOD COUNT 8.8 K/mm3 (4.0-10.0)
[2022-08-19 08:03] LABS: BLOOD UREA NITROGEN 18.7 mg/dL (7-18); CALCIUM 8.8 mg/dL (8.5-10.1); MAGNESIUM 2.4 mg/dL (1.8-2.4)
[2022-08-19 08:06] LABS: CREATININE 0.7 mg/dL (0.55-1.3); PHOSPHOROUS 3.8 mg/dL (2.5-4.9)
[2022-08-19] MEDS ORDERED: LIDOCAINE PATCH REMOVAL MC ONE (10:00)
[2022-08-19] MEDS: METOPROLOL TARTRATE 25 MG TABLET (FP) PO SCH (10:46)
[2022-08-19] MEDS: ASPIRIN COATED 81 MG TABLET.EC PO SCH (17:23)
[2022-08-20] MEDS ORDERED: ACETAMINOPHEN 325 MG TABLET (FP) PO PRN (03:11)
[2022-08-20 08:13] LABS: CHOLESTEROL 248 mg/dL (50-200)
[2022-08-20 08:15] LABS: LDL CHOLESTEROL (ONLY SJRH) 173 mg/dL (5-100)
[2022-08-20 08:16] LABS: HDL CHOLESTEROL 58 mg/dL (40-60)
[2022-08-20] MEDS ORDERED: ATORVASTATIN CA 40 MG TABLET (FP) PO ONE (09:30)
[2022-08-20] MEDS ORDERED: CLOPIDOGREL BISULFATE 300 MG TABLET PO ONE (10:00)
[2022-08-20] MEDS ORDERED: ATORVASTATIN CA 80 MG TABLET (FP) PO ONE (10:00)
[2022-08-20] MEDS: ASPIRIN COATED 81 MG TABLET.EC PO SCH (10:21)
[2022-08-20] MEDS: METOPROLOL TARTRATE 25 MG TABLET (FP) PO SCH (10:21)
[2022-08-21] MEDS: METOPROLOL TARTRATE 25 MG TABLET (FP) PO SCH (10:06)
[2022-08-21] MEDS: CLOPIDOGREL BISULFATE 75 MG TABLET (FP) PO SCH (10:06)
[2022-08-21] MEDS: ASPIRIN COATED 81 MG TABLET.EC PO SCH (10:07)
[2022-08-21] MEDS: ATORVASTATIN CA 80 MG TABLET (FP) PO SCH (21:47)
[2022-08-21] MEDS ORDERED: ATORVASTATIN CA 40 MG TABLET (FP) PO SCH (22:00)
[2022-08-22] MEDS: ASPIRIN COATED 81 MG TABLET.EC PO SCH (10:07)
[2022-08-22] MEDS: METOPROLOL TARTRATE 25 MG TABLET (FP) PO SCH (10:07)
[2022-08-22] MEDS: CLOPIDOGREL BISULFATE 75 MG TABLET (FP) PO SCH (10:08)
[2022-08-22] MEDS: ATORVASTATIN CA 80 MG TABLET (FP) PO SCH (22:01)
[2022-08-23] MEDS: ASPIRIN COATED 81 MG TABLET.EC PO SCH (09:38)
[2022-08-23] MEDS: METOPROLOL TARTRATE 25 MG TABLET (FP) PO SCH (09:38)
[2022-08-23] MEDS: CLOPIDOGREL BISULFATE 75 MG TABLET (FP) PO SCH (09:38)
[2022-08-23] MEDS ORDERED: metoPROLOL SUCCINATE 25 MG TAB.SR.24H (FP) PO SCH ×2 (13:30→15:00)
[2022-08-23] MEDS ORDERED: metoPROLOL SUCCINATE 25 MG TAB.SR.24H (FP) PO ONE (16:09)
[2022-08-23 20:28] VITALS: BP 148/86; PULSE 69; RESP 20; TEMP 97.8
[2022-08-24] MEDS ORDERED: metoPROLOL SUCCINATE 25 MG TAB.SR.24H (FP) PO SCH (10:00)
== END 2022-08-23 20:57 | disposition short-term general hospital (02) ==
LOC: JER 21:20 → JERBED 23:17 → J4W 08-19 03:10
PROVIDERS: ADMIT Internal Medicine; ATTEND Family Medicine
PROC: 3E033NZ Introduction of Analgesics, Hypnotics, Sedatives into Peripheral Vein, Percutaneous Approach (ICD-10-PCS; principal; 2022-08-18)
PROC: 3E033GC Introduction of Other Therapeutic Substance into Peripheral Vein, Percutaneous Approach (ICD-10-PCS; 2022-08-18)
DX: R07.9 Chest pain, unspecified (principal); I10 Essential (primary) hypertension; E78.5 Hyperlipidemia, unspecified; R51.9 Headache, unspecified; M54.2 Cervicalgia; R79.89 Other specified abnormal findings of blood chemistry; Z86.73 Personal history of transient ischemic attack (TIA), and cerebral infarction without residual deficits; J45.909 Unspecified asthma, uncomplicated; Q21.9 Congenital malformation of cardiac septum, unspecified
CPT/HCPCS: 36415; 70450-TC; 80048; 80053; 80061; 83036; 83735; 84100; 84460; 84484; 85025; 85610; 85651; 85730; 86140; 87635; 93005; 93010; 93306-TC; 93351; 99285-25; G0378

== ENCOUNTER 2023-03-14 13:04 | Observation (INO) | payer BC ==
[2023-03-14 13:24] VITALS: RESP 17; BMI 25.8
[2023-03-14] MEDS ORDERED: MAG HYDROX/AL HYDROX/SIMETH 30 ML UNIT-DOSE CUP PO ONE (14:15)
[2023-03-14] MEDS ORDERED: ACETAMINOPHEN 1000 MG/100 ML BAG IVPB ONE (14:15)
[2023-03-14] MEDS ORDERED: FAMOTIDINE 20 MG/50 ML IVPB 20 MG/50 ML MG IVPB ONE ×2 (14:15→15:54)
[2023-03-14] MEDS ORDERED: MAG HYDROX/AL HYDROX/SIMETH 30 ML UNIT-DOSE CUP ONE (15:54)
[2023-03-14] MEDS ORDERED: ACETAMINOPHEN INJECTION 100 ML IVPB ONE (15:54)
[2023-03-14 16:28] LABS: BASO % 0.9 % (0-2.0); EOS % 1.6 % (0-4.5); HEMATOCRIT 41.6 % (32.4-45.2); HEMOGLOBIN 13.7 GM/dL (10.7-15.3); LYMPH % 29.5 % (8-40); MCH 29.7 pg (25.7-33.7); MCHC 32.9 g/dl (32.0-36.0); MEAN CELL VOLUME 90.4 fl (80-96); MEAN PLT VOLUME 8.5 fl (7.5-11.1); MONO % 6.6 % (3.8-10.2); NEUT % 61.4 % (42.8-82.8); PLATELET COUNT 317 10^3/uL (134-434); RDW 14.2 % (11.6-15.6); WHITE BLOOD COUNT 9.1 K/mm3 (4.0-10.0)
[2023-03-14 16:39] LABS: INR 0.97 (0.83-1.09); PROTHROMBIN TIME (PATIENT) 11.2 SEC (9.7-13.0)
[2023-03-14 16:42] LABS: ACTIVATED PTT 29.5 SECONDS (25.2-36.5)
[2023-03-14 16:56] LABS: POTASSIUM 3.7 mmol/L (3.5-5.1)
[2023-03-14 16:59] LABS: BLOOD UREA NITROGEN 15.8 mg/dL (7-18); CALCIUM 8.7 mg/dL (8.5-10.1)
[2023-03-14 17:00] LABS: ALBUMIN 3.1 g/dl (3.4-5.0)
[2023-03-14 17:03] LABS: CREATININE 0.6 mg/dL (0.55-1.3)
[2023-03-14 17:04] LABS: BILIRUBIN,TOTAL 0.3 mg/dL (0.2-1); TOT PROT 6.7 g/dl (6.4-8.2)
[2023-03-14 21:34] VITALS: BP 164/79; PULSE 87; TEMP 98.5
[2023-03-14] MEDS ORDERED: DOCUSATE SODIUM 100 MG CAPSULE (FP) PO PRN (22:38)
[2023-03-14] MEDS ORDERED: ACETAMINOPHEN 1000 MG/100 ML BAG IVPB PRN (22:44)
[2023-03-15 00:34] LABS: MAGNESIUM 2.2 mg/dL (1.8-2.4)
[2023-03-15 00:37] LABS: PHOSPHOROUS 3.2 mg/dL (2.5-4.9)
[2023-03-15] MEDS ORDERED: ACETAMINOPHEN 325 MG TABLET (FP) PO PRN (22:45)
== END 2023-03-14 23:57 | disposition left against medical advice (07) ==
LOC: JER 13:04 → INTOOBSV 19:30 → JERBED 19:30
PROVIDERS: ADMIT Internal Medicine; ATTEND Internal Medicine
PROC: 3E033NZ Introduction of Analgesics, Hypnotics, Sedatives into Peripheral Vein, Percutaneous Approach (ICD-10-PCS; principal; 2023-03-14)
PROC: 3E033GC Introduction of Other Therapeutic Substance into Peripheral Vein, Percutaneous Approach (ICD-10-PCS; 2023-03-14)
DX: R07.89 Other chest pain (principal); E78.5 Hyperlipidemia, unspecified; I10 Essential (primary) hypertension; Q21.10 Atrial septal defect, unspecified; J45.909 Unspecified asthma, uncomplicated; Z86.73 Personal history of transient ischemic attack (TIA), and cerebral infarction without residual deficits; Z72.0 Tobacco use
CPT/HCPCS: 0241U-QW; 36415; 71046-TC-FY; 71275-TC; 80053; 83735; 84100; 84484; 85025; 85610; 85730; 86850; 86900; 86901; 93005; 93010; 99285-25; G0378; Q9967

== ENCOUNTER 2023-04-21 07:41 | Emergency (ER) | payer BC ==
[2023-04-21 08:00] VITALS: BMI 25.0
[2023-04-21] MEDS ORDERED: ACETAMINOPHEN INJECTION 100 ML IVPB ONE (08:39)
[2023-04-21 08:45] LABS: URINE APPEARANCE CLEAR; URINE BILIRUBIN NEGATIVE (NEGATIVE); URINE COLOR YELLOW; URINE GLUCOSE (UA) NEGATIVE (NEGATIVE); URINE KETONE NEGATIVE (NEGATIVE); URINE LEUK ESTERASE NEGATIVE (NEGATIVE); URINE NITRITE NEGATIVE (NEGATIVE); URINE PROTEIN NEGATIVE (NEGATIVE); URINE UROBILINOGEN 0.2 mg/dL (0.2-1.0)
[2023-04-21] MEDS ORDERED: ONDANSETRON 4 MG/2 ML VIAL ONE (08:47)
[2023-04-21] MEDS: SODIUM CHLORIDE 1,000 ML IV STA (08:49)
[2023-04-21] MEDS: ACETAMINOPHEN 1000 MG/100 ML BAG IVPB ONE (08:50)
[2023-04-21] MEDS: ONDANSETRON 4 MG/2 ML VIAL IVPUSH ONE (08:50)
[2023-04-21 09:01] LABS: BASO % 0.9 % (0-2.0); EOS % 2.2 % (0-4.5); HEMATOCRIT 41.9 % (32.4-45.2); HEMOGLOBIN 14.2 GM/dL (10.7-15.3); LYMPH % 29.6 % (8-40); MCH 30.6 pg (25.7-33.7); MCHC 33.9 g/dl (32.0-36.0); MEAN CELL VOLUME 90.2 fl (80-96); MEAN PLT VOLUME 8.7 fl (7.5-11.1); MONO % 5.9 % (3.8-10.2); NEUT % 61.4 % (42.8-82.8); PLATELET COUNT 339 10^3/uL (134-434); RBC 4.65 M/mm3 (3.60-5.2); RDW 14.2 % (11.6-15.6); WHITE BLOOD COUNT 8.7 K/mm3 (4.0-10.0)
[2023-04-21 09:29] LABS: POTASSIUM 4.6 mmol/L (3.5-5.1)
[2023-04-21 09:31] LABS: CALCIUM 9.2 mg/dL (8.5-10.1)
[2023-04-21 09:32] LABS: ALBUMIN 3.9 g/dl (3.4-5.0); BLOOD UREA NITROGEN 13.4 mg/dL (7-18)
[2023-04-21 09:34] LABS: CREATININE 0.7 mg/dL (0.55-1.3)
[2023-04-21 09:36] LABS: BILIRUBIN,TOTAL 0.5 mg/dL (0.2-1); TOT PROT 7.5 g/dl (6.4-8.2)
[2023-04-21] MEDS ORDERED: KETOROLAC TROMETHAMINE 15 MG/ML VIAL ONE (12:14)
[2023-04-21] MEDS: KETOROLAC TROMETHAMINE 30 MG/1 ML VIAL IVPUSH ONE (12:18)
[2023-04-21 13:40] VITALS: BP 172/79; PULSE 75; RESP 18; TEMP 97.8
== END 2023-04-21 14:50 | disposition home or self-care (01) ==
LOC: JER 07:41
PROC: 3E033NZ Introduction of Analgesics, Hypnotics, Sedatives into Peripheral Vein, Percutaneous Approach (ICD-10-PCS; principal; 2023-04-21)
PROC: 3E0333Z Introduction of Anti-inflammatory into Peripheral Vein, Percutaneous Approach (ICD-10-PCS; 2023-04-21)
PROC: 3E033GC Introduction of Other Therapeutic Substance into Peripheral Vein, Percutaneous Approach (ICD-10-PCS; 2023-04-21)
PROC: 3E0337Z Introduction of Electrolytic and Water Balance Substance into Peripheral Vein, Percutaneous Approach (ICD-10-PCS; 2023-04-21)
DX: R10.32 Left lower quadrant pain (principal); M54.9 Dorsalgia, unspecified; R11.0 Nausea
CPT/HCPCS: 36415; 74177-TC; 76856-TC; 80053; 81003; 83690; 85025; 87086; 93005; 93010; 99285-25; J0131; Q9967